=== PATIENT | male | born 1995 | race Caucasian/White ===

== ENCOUNTER 2018-07-07 08:30 | Emergency (ER) | payer OTHER ==
[2018-07-07 08:51] VITALS: BP 140/84
--- NOTE | 2018-07-07 10:11 | Emergency Department Report ---
Minor Respiratory - HPI Chief Complaint: Upper Respiratory Infection Stated Complaint: CANT SLEEP Time Seen by Provider: 07/07/18 09:29 Duration: 2 Days Pain Location: Nose (congestion) Severity: moderate Minor Respiratory: Yes Rhinorrhea, Yes Able to Tolerate Fluids, Yes Cough, Yes Sick Contacts, No Sore Throat, No Ear Pain, No Hemoptysis, No Chest Pain, No Shortness of Breath, No Fever Other History: This is a 23-year-old male who presents with cough and congestion for 2 days. Patient states symptoms started off with the persistent dry cough but only yesterday he had a few episodes of diarrhea. Patient states he started taken DayQuil and NyQuil yesterday with mild improvement of symptoms. Patient states his mother is sick as well with the same symptoms and no other people in the home are sick. Patient admits to a history of asthma. Denies fever, nausea, vomiting, chest pain, wheezing, and body aches. ED Review of Systems ROS: Stated complaint: CANT SLEEP Other details as noted in HPI Constitutional: chills. denies: fever ENT: congestion. denies: ear pain, throat pain Respiratory: cough. denies: shortness of breath, wheezing Cardiovascular: denies: chest pain, palpitations, syncope Gastrointestinal: denies: abdominal pain, nausea, vomiting, diarrhea Neurological: denies: headache, weakness, numbness, paresthesias Psychiatric: denies: anxiety, depression ED Past Medical Hx - Past Medical History Hx Asthma: Yes - Surgical History Additional Surgical History: TWISTED INTESTINE A CHILD - Social History Smoking Status: Never Smoker Substance Use Type: None - Medications Home Medications: Home Medications Medication Instructions Recorded Confirmed Last Taken Type ALBUTEROL Inhaler [ProAir HFA 1 puff IH Q4-6H PRN #1 inha 07/07/18 Unknown Rx Inhaler] Azithromycin [Zithromax Z-DUYEN] 250 mg PO DAILY #6 tablet 07/07/18 Unknown Rx Benzonatate [Tessalon Perles] 100 mg PO Q8HR PRN #20 capsule 07/07/18 Unknown Rx Fluticasone [Flonase] 1 spray NS QDAY #1 bottle 07/07/18 Unknown Rx Minor Respiratory Exam - Exam General: Vital signs noted. No distress. Alert and acting appropriately. HEENT: Yes Moist Mucous Membranes, Yes Rhinorrhea (turbinates mildly congested with clear discharge), No Pharyngeal Erythema, No Pharyngeal Exudates, No Conjuctival Injection, No Frontal Tenderness, No Maxillary Tenderness Ear: Neither TM Bulge, Neither TM Erythema, Neither EAC Pain, Neither EAC Discharge Neck: Yes Supple, No Adenopathy Lungs: Yes Good Air Exchange, Yes Cough, No Wheezes, No Ronchi, No Stridor, No Labored Respirations, No Retractions, No Use of Accessory Muscles, No Other Abnormal Lung Sounds Heart: Yes Regular, No Murmur Abdomen: Yes Normal Bowel Sounds, No Tenderness, No Peritoneal Signs Skin: No Rash, No Edema Neurologic: Alert and oriented, no deficits. Musculoskeletal: Unremarkable. ED Course Vital Signs 07/07/18 08:46 Temperature 98.6 F Pulse Rate 68 Respiratory 18 Rate Blood Pressure 140/84 O2 Sat by Pulse 99 Oximetry ED Medical Decision Making - Medical Decision Making 23 y.o. male that presents with URI symptoms. Patient examined by me and stable. No distress noted. Vitals normal. Physical findings susceptible of bronchitis. Start benzonatate, azithromycin, flonase, and albuterol. Discharged home stable. Return to work tomorrow. Follow up with Primary Care Provider in 2-3 days. Critical care attestation.: If time is entered above; I have spent that time in minutes in the direct care of this critically ill patient, excluding procedure time. ED Disposition Clinical Impression: Bronchitis Disposition: DC-01 TO HOME OR SELFCARE Is pt being admited?: No Does the pt Need Aspirin: No Condition: Stable Instructions: Chronic Bronchitis (ED) Additional Instructions: Increase fluid intake and rest. Wash hands frequently. F/U with Primary Care Provider. Return to ER if fever, SOB, or difficulty breathing after 48 hours of supportive care. Prescriptions: ALBUTEROL Inhaler [ProAir HFA Inhaler] 1 puff IH Q4-6H PRN #1 inha PRN Reason: Shortness Of Breath Azithromycin [Zithromax Z-DUYEN] 250 mg PO DAILY #6 tablet Benzonatate [Tessalon Perles] 100 mg PO Q8HR PRN #20 capsule PRN Reason: Cough Fluticasone [Flonase] 1 spray NS QDAY #1 bottle Referrals: [facility] [Outside] - 3-5 Days [facility] [Outside] - 3-5 Days [facility] [Outside] - 3-5 Days Forms: Work/School Release Form(ED) Time of Disposition: 10:14 Print Language: SETSWANA
== END 2018-07-07 10:46 | disposition home or self-care (01) ==
LOC: ED 08:30
DX: J45.909 Unspecified asthma, uncomplicated (principal)
CPT/HCPCS: 99282

== ENCOUNTER 2019-02-02 03:21 | Emergency (ER) | payer OTHER ==
--- NOTE | 2019-02-02 05:07 | XRay Report ---
PROCEDURE: XR CHEST ROUTINE 2V TECHNIQUE: PA and lateral chest radiographs were obtained. HISTORY: green sputum, SOB COMPARISONS: None. FINDINGS: Heart: Normal. Mediastinum/Vessels: Normal. Lungs/Pleural space: Normal. Bony thorax: No acute osseous abnormality. IMPRESSION: Normal examination. This document is electronically signed by Mynor Maynard MD., February 02 2019 05:05:18 AM ET
[2019-02-02 05:27] LABS: Hematocrit 41.7 % (35.5-45.6); Hemoglobin 14.6 gm/dl (11.8-15.2); Mean Corpuscular HGB Conc 35 % (32-34); Mean Corpuscular Volume 86 fl (84-94); Platelet Count 186 K/mm3 (140-440); Red Blood Count 4.82 M/mm3 (3.65-5.03); Red Cell Distribution Width 13.1 % (13.2-15.2)
[2019-02-02 06:19] LABS: Basophils % (Manual) 0 % (0.0-1.8); Eosinophils % (Manual) 0 % (0.0-4.3); Total Cells Counted 100
[2019-02-02 06:20] LABS: Platelet Estimate Consistent w Auto; RBC Morphology Normal
[2019-02-02 07:27] LABS: BUN/Creatinine Ratio 11; Blood Urea Nitrogen 9 mg/dL (9-20); Calcium 9.1 mg/dL (8.4-10.2); Hemolysis Index 4
[2019-02-02] MEDS ORDERED: ZITHROMAX PO ONE (08:14)
[2019-02-02] MEDS ORDERED: PROVENTIL IH ONE (08:14)
[2019-02-02] MEDS ORDERED: DELTASONE PO ONE (08:14)
--- NOTE | 2019-02-02 08:15 | Emergency Department Report ---
Minor Respiratory - HPI Chief Complaint: Upper Respiratory Infection Stated Complaint: COLD SWEAT/COUGH/STUFFY NOSE/HEADACHE Time Seen by Provider: 02/02/19 08:14 Duration: 2 Days Pain Location: Chest Severity: moderate Minor Respiratory: Yes Able to Tolerate Fluids, Yes Cough, No Rhinorrhea, No Sore Throat, No Ear Pain, No Sick Contacts, No Hemoptysis, No Chest Pain, No Shortness of Breath, No Fever Other History: Patient is a 23-year-old male who comes in with a 2 day history of worsening cough with sputum. He has a low-grade fever here in the emergency room. He is not tachycardic. He is nontoxic. Ambulatory without shortness of breath. ED Review of Systems ROS: Stated complaint: COLD SWEAT/COUGH/STUFFY NOSE/HEADACHE Other details as noted in HPI Comment: All other systems reviewed and negative Constitutional: see HPI, chills, fever Eyes: denies: eye pain ENT: denies: throat pain Respiratory: see HPI, cough, wheezing. 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 - Family History Family history: no significant - Social History Smoking Status: Never Smoker Substance Use Type: None - Medications Home Medications: Home Medications Medication Instructions Recorded Confirmed Last Taken Type Albuterol Sulfate [Ventolin HFA] 2 puff IH Q4H PRN #1 hfa.aer.ad 02/02/19 Unknown Rx Azithromycin [Zithromax Z-DUYEN] 250 mg PO DAILY #4 tablet 02/02/19 Unknown Rx Benzonatate [Tessalon Perles] 100 mg PO Q8HR PRN #20 capsule 02/02/19 Unknown Rx Fluticasone [Flonase] 1 spray NS QDAY #1 bottle 02/02/19 Unknown Rx predniSONE [Deltasone] 20 mg PO DAILY #5 tablet 02/02/19 Unknown Rx Minor Respiratory Exam - Exam General: Vital signs noted. No distress. Alert and acting appropriately. HEENT: Yes Moist Mucous Membranes, No Pharyngeal Erythema, No Pharyngeal Exudates, No Rhinorrhea, No Conjuctival Injection, No Frontal Tenderness, No Maxillary Tenderness Ear: Neither TM Bulge, Neither TM Erythema, Neither EAC Pain, Neither EAC Discharge Neck: Yes Supple, No Adenopathy Lungs: Yes Good Air Exchange, Yes Wheezes (B), Yes Cough, No Ronchi, No Stridor, No Labored Respirations, No Retractions, No Use of Accessory Muscles, No Other Abnormal Lung Sounds Heart: Yes Regular, No Murmur Abdomen: Yes Normal Bowel Sounds, No Tenderness, No Peritoneal Signs Skin: No Rash, No Edema Neurologic: Alert and oriented, no deficits. Musculoskeletal: Unremarkable. ED Course Vital Signs 02/02/19 02/02/19 02/02/19 03:29 03:33 06:24 Temperature 99.0 F 99 F 98.8 F Pulse Rate 98 H 104 H 91 H Respiratory 18 20 16 Rate Blood Pressure 136/65 136/65 121/65 O2 Sat by Pulse 92 94 96 Oximetry ED Medical Decision Making - Lab Data Result diagrams: 02/02/19 04:57 02/02/19 04:57 - Medical Decision Making Labs 02/02/19 02/02/19 04:57 04:57 WBC 14.9 H RBC 4.82 Hgb 14.6 Hct 41.7 MCV 86 MCH 30 MCHC 35 H RDW 13.1 L Plt Count 186 Add Manual Diff Complete Total Counted 100 Seg Neuts % (Manual) 91.0 H Band Neutrophils % 0 Lymphocytes % (Manual) 3.0 L Reactive Lymphs % (Man) 0 Monocytes % (Manual) 6.0 Eosinophils % (Manual) 0 Basophils % (Manual) 0 Metamyelocytes % 0 Myelocytes % 0 Promyelocytes % 0 Blast Cells % 0 Nucleated RBC % Not Reportable Seg Neutrophils # Man 13.6 H Band Neutrophils # 0.0 Lymphocytes # (Manual) 0.4 L Abs React Lymphs (Man) 0.0 Monocytes # (Manual) 0.9 H Eosinophils # (Manual) 0.0 Basophils # (Manual) 0.0 Metamyelocytes # 0.0 Myelocytes # 0.0 Promyelocytes # 0.0 Blast Cells # 0.0 WBC Morphology Not Reportable Hypersegmented Neuts Not Reportable Hyposegmented Neuts Not Reportable Hypogranular Neuts Not Reportable Smudge Cells Not Reportable Toxic Granulation Not Reportable Toxic Vacuolation Not Reportable Dohle Bodies Not Reportable Pelger-Huet Anomaly Not Reportable Ciro Rods Not Reportable Platelet Estimate Consistent w auto Clumped Platelets Not Reportable Plt Clumps, EDTA Not Reportable Large Platelets Not Reportable Giant Platelets Not Reportable Platelet Satelliting Not Reportable Plt Morphology Comment Not Reportable RBC Morphology Normal Dimorphic RBCs Not Reportable Polychromasia Not Reportable Hypochromasia Not Reportable Poikilocytosis Not Reportable Anisocytosis Not Reportable Microcytosis Not Reportable Macrocytosis Not Reportable Spherocytes Not Reportable Pappenheimer Bodies Not Reportable Sickle Cells Not Reportable Target Cells Not Reportable Tear Drop Cells Not Reportable Ovalocytes Not Reportable Helmet Cells Not Reportable Ramirez-[place] Bodies Not Reportable [place] Rings Not Reportable [place] Cells Not Reportable Bite Cells Not Reportable Crenated Cell Not Reportable Elliptocytes Not Reportable Acanthocytes (Spur) Not Reportable Rouleaux Not Reportable Hemoglobin C Crystals Not Reportable Schistocytes Not Reportable Malaria parasites Not Reportable Saji Bodies Not Reportable Hem Pathologist Commnt No Sodium 140 Potassium 4.3 Chloride 97.6 L Carbon Dioxide 28 Anion Gap 19 BUN 9 Creatinine 0.8 Estimated GFR > 60 BUN/Creatinine Ratio 11 Glucose 107 H Calcium 9.1 CHEST XRAY NO ACUTE PROCESS VSS AFIB Vital Signs 02/02/19 02/02/19 02/02/19 03:29 03:33 06:24 Temperature 99.0 F 99 F 98.8 F Pulse Rate 98 H 104 H 91 H Respiratory 18 20 16 Rate Blood Pressure 136/65 136/65 121/65 O2 Sat by Pulse 92 94 96 Oximetry DUONEB PER RT MEDICATED WITH AZITHRO AND PREDNISONE DC HOME WITH PCP FOLLOW UP Critical care attestation.: If time is entered above; I have spent that time in minutes in the direct care of this critically ill patient, excluding procedure time. ED Disposition Clinical Impression: Acute asthma exacerbation, URTI (acute upper respiratory infection) Disposition: DC- TO HOME OR SELFCARE Is pt being admited?: No Does the pt Need Aspirin: No Condition: Stable Instructions: Asthma (ED) Additional Instructions: MEDS ORDERED TODAY FOLLOW UP WITH PCP MONDAY TO BE SURE YOU ARE GETTING BETTER REST HYDRATE WELL WITH WATER MOTRIN OR TYLENOL FOR FEVER DIET AND ACTIVITY TOLERATED Referrals: ALLIE GANN MD [Primary Care Provider] - 3-5 Days Time of Disposition: 08:25
[2019-02-02 08:48] VITALS: BP 123/75
== END 2019-02-02 08:49 | disposition home or self-care (01) ==
LOC: ED 03:21
DX: J45.901 Unspecified asthma with (acute) exacerbation (principal); J06.9 Acute upper respiratory infection, unspecified
CPT/HCPCS: 36415; 71046; 80048; 85007; 85025; 94640; 99284; J7512